=== PATIENT | male | born 1960 | race African-American/Black ===

== ENCOUNTER 2020-02-16 14:02 | Inpatient (IN) | payer OTHER, BC ==
[~2020-02-16] VITALS: Ht 175.3 cm; Wt 97.9 kg
[2020-02-16] VITALS (14 sets, daily range): BP systolic 149–181; BP diastolic 53–79
--- NOTE | ~2020-02-16 | HC ---
[facility] [place] [address] CONSULTATION Name: RASHEL TAPIA Room #: 238-P ADM IN M.R.#: [id number] Admission: 02/16/20 Attend Phys: Sameer Mariee MD Discharge: Date of : 60 Report #: [id number] THIS REPORT FOR: cc: LIZZ Campos family physician/PCP LIZZ Campos family physician/PCP January Prajapati MD ~ CC: [facility] physician/PCP Sameer Mariee REASON FOR THE CONSULTATION: Elevated creatinine. REASON FOR THE PRESENTATION: Shortness of breath. HISTORY OF PRESENT ILLNESS: This is obtained from the medical chart. The patient is currently intubated and not able to provide me with the history. A 59-year-old with a history of diabetes mellitus, hypertension, chronic kidney disease. Most of the patient's care is actually at . He presented yesterday with shortness of breath. He was hypoxic on arrival. He was emergently intubated. Looks like that the patient has been noncompliant with his medication per the . He had an elevated creatinine of 2.8. I have not talked with the yet, but she reported that the patient is known to have chronic kidney disease and is followed by . He is also known to have all diabetic complications related to diabetes mellitus including bilateral below-knee amputations. PAST MEDICAL HISTORY: 1. Diabetes mellitus. 2. Hypertension. 3. Bilateral amputee. MEDICATIONS: 1. Atorvastatin. 2. Aspirin. 3. Insulin. 4. Amlodipine. REVIEW OF SYSTEMS: Unobtainable given the patient's current intubated status. ALLERGIES: None. FAMILY HISTORY: Unobtainable given the patient's current mental status. SOCIAL HISTORY: Unobtainable given the patient's current intubation status. PHYSICAL EXAMINATION: VITAL SIGNS: Blood pressure is 148/56, pulse rate is 63. He is currently [facility] [address] [place] [address] CONSULTATION Name: RASHEL TAPIA Room #: 238-P [facility] IN [facility]#: [id number] Admission: 02/16/20 Attend Phys: Sameer Mariee MD Discharge: Date of : 60 Report #: [id number] intubated. CHEST: Decreased air entry bilaterally with crackles and rhonchi on the right side. CARDIOVASCULAR: No rub. ABDOMEN: Soft. EXTREMITIES: Lower extremities, bilateral amputee. LABORATORY VALUES: Reviewed. White blood cell count is 15.0, hemoglobin is 9.0, platelet is 139. Blood gas from this morning showed a pH of 7.3. Chemistry from today is not received yet; however, yesterday's chemistry revealed a sodium of 138, potassium of 6.4, BUN of 37, creatinine of 2.9. Chest x-ray reviewed, right-sided pulmonary infiltrate. ASSESSMENT, IMPRESSION, PLAN: 1. Acute kidney injury. 2. Chronic kidney disease. 3. Person under investigation for COVID-19 infection. 4. First COVID-19 was negative, pending repeat. 5. Right-sided pneumonitis. 6. Continue antibiotics. 7. The patient had significant hyperkalemia on presentation and this was treated. Labs from today are pending. 8. Continue with the IV fluid. 9. Infectious Disease is currently managing his antibiotics. 10. We will wait for the labs from today to decide about further plans regarding his chronic kidney disease. 11. We will reach out to his regarding his chronic kidney disease history and the prospective of his medical care. By: [phone] January Prajapati MD /nt
[2020-02-16 14:27] LABS: EOSINOPHILS 1.1 % (0.0-3.0); HEMOGLOBIN 10.6 gm/dL (14.0-18.0)
[2020-02-16 14:35] LABS: ABSOLUTE NEUTROPHILS 11.7 thou/uL (1.4-8.2); BASOPHILS 0.4 % (0.0-2.0); HEMATOCRIT 34.4 % (42.0-52.0); LYMPHOCYTES 10.5 % (24.0-44.0); MCHC 30.9 g/dL (28.0-37.0); MONOCYTES 4.2 % (1.0-8.0); POLYS 83.8 % (36.0-66.0); RBC 4.25 mil/uL (4.50-6.00); RDW 15.3 % (10.5-14.5); WBC 13.9 thou/uL (4.0-11.0)
[2020-02-16 14:39] LABS: ANION GAP 9 mmol/L (7-16); BUN 34 mg/dL (7-18); CALCIUM 8.1 mg/dL (8.5-10.1); CHLORIDE 107 mmol/L (98-107); CO2 23 mmol/L (21-32); CREATININE 2.8 mg/dL (0.7-1.3); GLUCOSE 202 mg/dL (74-106); POTASSIUM 5.2 mmol/L (3.5-5.1); SODIUM 139 mmol/L (136-145)
[2020-02-16 14:43] LABS: TROPONIN-I <0.06 ng/mL (<0.06)
[2020-02-16 14:53] LABS: BE(vivo) -10.3 mmol/L (-2 to +3); HCO3 16.6 mmol/L (22.0-26.0); PCO2 40.4 mmHg (35.0-45.0); PO2 103.6 mmHg (80.0-100.0); pH 7.231 (7.360-7.450); sO2 96.8 % (92.0-98.0)
[2020-02-16 15:06] LABS: PLATELET COUNT 176 thou/uL (150-400)
[2020-02-16] MEDS ORDERED: PEPCID20 MG PO (15:52)
[2020-02-16] MEDS ORDERED: LIPITOR40 MG PO (15:54)
[2020-02-16] MEDS ORDERED: LANTUS (15:54)
[2020-02-16] MEDS ORDERED: ASA81BEC PO (15:54)
[2020-02-16] MEDS ORDERED: NORVASC 2.5 MG2.5 M1 PO (15:54)
[2020-02-16] MEDS ORDERED: NOVOLOG100 UNIT/M (15:55)
--- NOTE | 2020-02-16 17:46 | NUR ---
REPORT GIVEN TO ICU NURSE
[2020-02-16 21:16] LABS: HEMATOCRIT 28.3 % (42.0-52.0); MCH 25.5 pg (26.0-34.0); MCHC 31.8 g/dL (28.0-37.0); MCV 80.3 fL (80.0-100.0); RBC 3.53 mil/uL (4.50-6.00)
[2020-02-16 21:35] LABS: CALCIUM 7.5 mg/dL (8.5-10.1); CREATININE 2.9 mg/dL (0.7-1.3)
[2020-02-16 21:40] LABS: POTASSIUM 6.4 mmol/L (3.5-5.1)
[2020-02-17] VITALS (28 sets, daily range): BP systolic 128–176; BP diastolic 52–78
--- NOTE | 2020-02-17 03:28 | NUR ---
ASSUMED CARE OF PATIENT AT 1900. ADMISSION HISTORY AND MED REC COMPLETE WITH INFORMATION PROVIDED BY DAUGHTER CONRADO VIA PHONE. FIRST COVID TEST NEGATIVE. RESULTS CALLED TO ASHA ARECHIGA, GERMINATION WORKER, AND CHARGE. DR IBANEZ. DR GARRETT CONSULTED. ORDERS FROM DR IBANEZ TO MOVE PATIENT TO POD 1. DR ALICEA CONSULTED DUE TO CRITICAL LABS, ORDERS RECIEVED, INFORMATION PASSED ON TO RN ASSUMING CARE AFTER MOVE. DAUGHTER UPDATED ABOUT MOVE, WAS ABLE TO SPEAK WITH DR IBANEZ. PATIENT MOVED TO ROOM 238 AT 0038. POC GOALS ESTABLISHED.
[2020-02-17 05:18] LABS: HCO3 21.9 mmol/L (22.0-26.0); PCO2 43.1 mmHg (35.0-45.0); PO2 102.6 mmHg (80.0-100.0); pH 7.323 (7.360-7.450); sO2 97.3 % (92.0-98.0)
--- NOTE | 2020-02-17 08:47 | NUR ---
[facility] PT PROGRESSING TOWARD GOALS. ALERT, APPROPRIATE ON PROPOFOL.DENIES PAIN. MONITOR SR. AFBRILE. BP WNL HYPERKALMIA PROTOCOL GIVEN PER DR OMALLEY. DIRUESING WELL AFTER LASIX. NO STOOLS. BS WNL THIS AM AFTER INSULIN/DEXTROSE COMBO.DECREASING OXYGEN NEEDS VIA VENT --NOW ON 60% AND PEEP 5. AWAITING LABS, AND 2ND COVID TEST. GOOD TECHIQUE
--- NOTE | 2020-02-17 08:58 | EKG ---
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: meryl : 1960 Requested By: Prince Lu Order Number: [id number] MD: Johnny Sena Measurements Intervals [place] Rate: 82 P: 42 MS: 176 QRS: -86 QRSD: 97 T: 81 QT: 405 QTc: 473 Interpretive Statements Sinus rhythm Left anterior fascicular block RSR' in V1 or V2, right VCD Borderline prolonged QT interval No previous ECG available for comparison Electronically Signed On 02-17-2020 8:56:03 CDT by Johnny Sena [email or web address] <ELECTRONICALLY SIGNED> By: Johnny Sena MD, [facility] 02/17/20 0856 1414 1414 Johnny Sena MD, [facility] /EPI
[2020-02-17 09:05] LABS: HEMATOCRIT 26.1 % (42.0-52.0); HEMOGLOBIN 8.7 gm/dL (14.0-18.0); MCH 26.8 pg (26.0-34.0); MCHC 33.5 g/dL (28.0-37.0); RBC 3.26 mil/uL (4.50-6.00); RDW 15.2 % (10.5-14.5); WBC 10.7 thou/uL (4.0-11.0)
[2020-02-17 09:11] LABS: CALCIUM 7.4 mg/dL (8.5-10.1); CREATININE 2.9 mg/dL (0.7-1.3); POTASSIUM 5.9 mmol/L (3.5-5.1)
--- NOTE | 2020-02-17 10:10 | NUR ---
WOUND CONSULT; THE PATIENTS RN NOTED SKIN BREAKDOWN TO THE FINGERS ON THE RIGHT HAND. THE REPORT WAS JHA TO THE 3RD-5TH FINGERS. UNSTABLE BLISTERS WERE NOTED. NO S/S OF INFECTION SEEN. THE WOUNDS WERE ASSESSED BY PICTURES RE; COVID19 ISOLATION. RN STATES THE PICTURES ARE ACCURATE. RECOMMENDATIONS; 1-XEROFORM, WRAP WITH 2" GAUZE, SECURE WITH TAPE, CHANGE M/W/F PRN DISCUSSED WITH RN
--- NOTE | 2020-02-17 10:44 | NUR ---
Nutrition: REC consider initial tube feeds within 24 hrs if remains intubated. If hyperkalemia persists, rec nepro at 40 mL/hr with beneprotein in water flushes if ordered. If K+ normalizes REC Vital HP at 70 mL/hr with current propofol rate.
--- NOTE | 2020-02-17 14:25 | NUR ---
VASCULAR ACCESS NURSE NOTIFIED TO PLACE A CENTRAL LINE FOR A PATIENT NEEDING ACCESS. ORDER AND CONSENT NOTED. THE PROCEDURE WELL BENIFITS AND RISKS WERE DISCUSSED AND HE VERBALIZED UNDERSTANDING. THE RIGHT IJ WAS WIDLEY PATENT. A #6F TRIPLE LUMEN POWER INJECTABLE CENTRAL LINE WAS PLACED AFTER A BEDSIDE TIMEOUT WAS COMPLETED. LINE WAS 25CM WITH 7CM EXTERNAL. A STAT CHEST XRAY CONFIRMED LINE IN SVC AND RELEASED FOR USE
--- NOTE | 2020-02-17 15:19 | NUR ---
INITIAL ASSESSMENT: Received consult. YARITZA reviewed chart and spoke with attending physician. Pt was admitted from home due to shortness of air. Pt is in Enhanced Isolation. Two COVID-19 tests have been negative. Pt is currently intubated. YARITZA spoke with pt's dtr, Oriana, via phone. Introduced role of SW. Pt is normally alert/orientated x 4. Pt lives at home with Oriana. Pt with hx bilateral BKAs. Pt has prosthesis and is able to ambulate without an assistive device. Pt has been to the inpt acute rehab at [facility] following both BKAs. Pt's PCP is at [facility]. No weekend discharge planned. Pt will need therapy evals ordered when able to participate. YARITZA is following to assist as needed with discharge planning.
--- NOTE | 2020-02-17 19:41 | NUR ---
RECEIVED PT'S CARE AROUND 0710; PT. ON BED; RESTING WITH EYES CLOSED; ON PROPOFOL; SR ON THE MONITOR; DURING AM ASSESSMENT DEEP SEDATION; PROPOFOL TITRATE IT DOWN TO 19.98; RE-ASSESSMENT PT. EASILY AROUSOBLE; AOX4; NO C/O PAIN; ASKED IF COVID RESULTS WERE BACK; UPDATE; AM MEDICATIONS GIVEN; HOLD LANTUS; BS 126; DURING ROUNDING DR. URBANO REQUESTED TO GIVE LANTUS; MEDICATION GIVEN; POTASSIUM ELEVATED; DR. ORTEGA NOTIFIED; ORDERS RECEIVED; PT. RECEIVED BREATHING TREATMENT; RT NOT ABLE TO SCANNED MEDICATION DUE TO [employer] DID NOT ALLOW IT; WOUND CARE PERFORMED PER ORDERS; TURN FROM SIDE TO SIDE; PT. ABLE TO ASSIST WITH TURNINGS; SBP ELEVATED; PHYSICIAN NOTIFIED; ORDERS ON PLACE; PRN MEDICATION GIVEN; DURING THE EVENING BS ON THE 50s; PROTOCOL FOLLOWED; D10 GIVEN; PHYSICIAN NOTIFIED; ORDERS RECEIVED; PT. REFUSED TURNING DURING LATE AFTERNOON; THROUGH THE DAY O2 SATs BETWEEN 98-100s; O2 DECREASE TO 40%; SECOND COVID 19 TEST NEGATIVE; PHYSICIANS NOTIFIED; DR. IBANEZ REQUESTED A THRID TEST ON 02/18/2020; CHARGE NURSE AWARED OF IT; ASSESSMENT CHARGED; FOLLOWING POC; PASSED ON REPORT; DURING SHIFT CHANGE RECEIVED CALL FROM DR. ORTEGA; PHYSICIAN [facility] PT'S DAUGHTER PT. IS NOT INTERESTING IN DIALYSIS; NIGHT NURSE NOTIFIED;
[2020-02-18] VITALS (17 sets, daily range): BP systolic 124–158; BP diastolic 40–69
[2020-02-18 01:07] LABS: HIV ANTIBODY Non Reactive (Non Reactive)
--- NOTE | 2020-02-18 06:00 | NUR ---
PT REMAINS INTUBATED AND LIGHTLY SEDATED. FOLLOWS COMMANDS WRITES NOTES. PROPOFOL AT 20 MCG. LUNGS SLIGHTLY COARSE IN UPPER LOBES. 40 % FIO2 BATHED. HAD A MOD GUO BROWN LOOSE STOOL THIS AM. DENIES PAIN NOR DISCOMFORT. RESTED QUIETLY ALL NIGHT. A VERY DELIGHTFUL GENTLEMAN. WILL DO # 3 COVID TEST TODAY. THE FIRST 2 WERE NEGATIVE. SPOKE WITH PTS DAUGHTER WHOM HE LIVES WITH. PTS 83 Y/O MOTHER GOT DX WITH COVID 19 WHILE AT A REHAB IN [facility] 2 WEEKS AGO. SHE IS ALSO ON THE VENT. PT Has not seen his mother in a while. WILL CONT TO MONITOR CLOSELY.
[2020-02-18 06:25] LABS: HEMATOCRIT 24.4 % (42.0-52.0); HEMOGLOBIN 7.8 gm/dL (14.0-18.0); MCH 25.6 pg (26.0-34.0); MCHC 32.1 g/dL (28.0-37.0); MCV 79.8 fL (80.0-100.0); RBC 3.06 mil/uL (4.50-6.00); RDW 15.4 % (10.5-14.5); WBC 8.9 thou/uL (4.0-11.0)
[2020-02-18 06:39] LABS: ALBUMIN 2.1 g/dL (3.4-5.0); CALCIUM 7.4 mg/dL (8.5-10.1); CREATININE 3.1 mg/dL (0.7-1.3); PHOSPHORUS 3.8 mg/dL (2.5-4.9)
[2020-02-18 06:46] LABS: POTASSIUM 4.9 mmol/L (3.5-5.1)
[2020-02-18 13:58] LABS: BE(vivo) -1.8 mmol/L (-2 to +3); HCO3 23.4 mmol/L (22.0-26.0); PCO2 41.4 mmHg (35.0-45.0); sO2 95.8 % (92.0-98.0)
--- NOTE | 2020-02-18 19:26 | NUR ---
ASSUMED CARE @ 0700 02/18/20, PT ASSESSMENTS AND VSS COMPLETE PER ICU PROTOCOL AND DOCUMENTED. DR URBANO HERE TO ROUND, NO NEW ORDERS NOTED. AT INTIAL ASSESSMENT, 0800 , RN NOTES THAT THE OG TUBE IS @ 35CM, IT WAS REPORTED @ 65CM. TUBE FEEDS STOPPED, OG ADVANCED TO 65CM AND DR URBANO INFORMED, KUB ORDERED. CPAP AT 1250, ABG 1353, RESULTS CALLED TO DR IBANEZ, PT EXTUBATED @ 1705, NOW ON 6L OF , SATS 97-100, NO COMPLICATIONS NOTED. WILL CONT TO MONITOR.
[2020-02-19] VITALS (17 sets, daily range): BP systolic 115–165; BP diastolic 46–76
[2020-02-19 06:04] LABS: HEMATOCRIT 25.2 % (42.0-52.0); HEMOGLOBIN 8.1 gm/dL (14.0-18.0); MCH 25.9 pg (26.0-34.0); MCHC 32.1 g/dL (28.0-37.0); MCV 80.9 fL (80.0-100.0); RBC 3.11 mil/uL (4.50-6.00); RDW 15.2 % (10.5-14.5); WBC 10.4 thou/uL (4.0-11.0)
[2020-02-19 06:19] LABS: ALBUMIN 2.1 g/dL (3.4-5.0); CALCIUM 7.9 mg/dL (8.5-10.1); PHOSPHORUS 3.4 mg/dL (2.5-4.9); POTASSIUM 4.4 mmol/L (3.5-5.1)
--- NOTE | 2020-02-19 07:56 | NUR ---
ASSESSMENTS CHARTED, MEDS GIVEN CHARTED. PATIENT ALERT AND ORIENTED DURING SIFT. ON 6 LITERS NASAL CANULA MAINTAINING OXYGEN LEVEL ABOVE 90%. JUAREZ IN PLACE WITH GREAT OUTPUT. STARTED NPO SINCE EXTIBATED. ATE ICE CHIPS FINE, PROGRESSED TO WATER FINE, ATE YOGURT FINE. ACCUCHECK Q6 COVERED CHARTED. PATIENT ABLE TO REPOSITION HIMSELF IN BED. DENIED PAIN. FALL PRECAUTIONS IN PLACE DURING SHIFT. SPOKE WITH DAUGHTER THIS MORNING, WANTS TO KNOW HOW SOON HE WELL BE DISCHARGED.
[2020-02-20] VITALS (11 sets, daily range): BP systolic 117–164; BP diastolic 39–73
--- NOTE | 2020-02-20 06:00 | NUR ---
PT AWAKE AND ALERT SLEPT MOST OF NIGHT. VSS SINUS RHYTHM. 600 CC UO THIS SHIFT. PROGRESSING TOWARD GOALS. WILL CONT TO MONITOR
--- NOTE | 2020-02-20 06:10 | NUR ---
TX VIA BED WITH RN TO CCU ROOM 207.
[2020-02-20 06:23] LABS: HEMATOCRIT 24.2 % (42.0-52.0); HEMOGLOBIN 7.7 gm/dL (14.0-18.0); MCHC 31.8 g/dL (28.0-37.0); RBC 2.95 mil/uL (4.50-6.00); RDW 15.2 % (10.5-14.5); WBC 10.2 thou/uL (4.0-11.0)
[2020-02-20 06:50] LABS: ALBUMIN 2.1 g/dL (3.4-5.0); CALCIUM 7.8 mg/dL (8.5-10.1); CREATININE 3.5 mg/dL (0.7-1.3); PHOSPHORUS 3.3 mg/dL (2.5-4.9); POTASSIUM 4.6 mmol/L (3.5-5.1)
--- NOTE | 2020-02-20 17:47 | NUR ---
RECEIVED PT'S CARE AROUND 0700; PER CHARGE NURSE; PT. WAS TRANSFER FROM ICU AT SHIFT CHANGE; NO REPORT RECEIVED; PT. KNOWN TO DATA ANALYTICS ANALYST DUE TO NURSE TOOK CARE LAST THURSDAY; AT SHIFT CHANGE PT. ALERT; DURING AM ASSESSMENT PT. A0X4; C/O PAIN DUE TO JUAREZ CATHETER; PER DR. URBANO DURING ROUNDING OK TO D/C JUAREZ; AM MEDICATIONS GIVEN; PER DR. URBANO OK TO D/C CENTRAL LINE; JUAREZ D/C AT 1050; CENTRAL LINE D/C AT 1700; TIP COMPLETE; REFUSED TO SIT ON CHAIR; ST. FEELING TIRED; DAUGHTER UPDATE ABOUT PT'S CONDITION; ST. UNDERSTANDING; SR ON THE MONITOR; WOUND CARE PERFOMED; MONITORING VOIDING; ASSESSMENT CHARGED; FOLLOWING POC; WILL PASS ON REPORT;
[2020-02-21 00:27] VITALS: BP 133/57
[2020-02-21 04:01] VITALS: BP 134/45
--- NOTE | 2020-02-21 04:29 | NUR ---
ASSESSMENT DOCUMENTED.PT BEEN RESTING IN NO ACUTE DISTRESS.PT STAYED IN BED THROUGH THE NOC.VSS.NSR ON MONITOR.ON O2 AT 2LITERS PNC,NO RESP DISTRESS NOTED.BBKA,PT USES PROSTHESIS TO AMBULATE.DENIES ANY NEEDS AT THIS TIME.WILL CONT TO MONITOR PER POC.
--- NOTE | 2020-02-21 04:52 | NUR ---
PT HAD NOT URINATED ALL THIS SHIFT SO FAR,BLADDER SCAN SHOWS RESIDUAL OF 300ML,PT DENIES URGE TO VOID, STATED"I DONT PEE THROUGH THE NOC,I PEE WHEN I WAKE UP IN THE MORNING AND YOU GUYS KEEP INTERRUPTING MY SCHEDULED"PT DECLINED STRAIGHT KENDRA ,WILL TRY TO ASK HIM TO TRY TO VOID AT THE END OF THE SHIFT.WILL CONT TO MONITOR PER POC.
[2020-02-21 05:13] LABS: ALBUMIN 2.1 g/dL (3.4-5.0); CALCIUM 7.7 mg/dL (8.5-10.1); CREATININE 4.4 mg/dL (0.7-1.3); PHOSPHORUS 3.7 mg/dL (2.5-4.9); POTASSIUM 4.7 mmol/L (3.5-5.1)
[2020-02-21 06:06] LABS: HEMATOCRIT 23.9 % (42.0-52.0); HEMOGLOBIN 7.7 gm/dL (14.0-18.0); MCH 26.1 pg (26.0-34.0); MCHC 32.1 g/dL (28.0-37.0); MCV 81.4 fL (80.0-100.0); RBC 2.93 mil/uL (4.50-6.00); RDW 15.3 % (10.5-14.5); WBC 9.3 thou/uL (4.0-11.0)
[2020-02-21 08:02] VITALS: BP 142/70
--- NOTE | 2020-02-21 11:25 | NUR ---
WOUND CARE F/U; ASSESSED LEFT HAND FINGERS W/ DEMOLITION EXPERTBENSON JACKSON, 4TH AND 5TH FINGERS WOUND STILL OPEN BUT HEALING, PINK VIABLE TISSUE PRESENT, NO S/S INFECTION, COOPERATIVE, CLEANSED W/ NS, XEROFORM GAUZE, KERLIX WEAVED BETWEEN FINGERS RECOMMENDATIONS; CONT XEROFORM AND KERLIX DAILY AND PRN STAFF AWARE
[2020-02-21 11:45] VITALS: BP 141/64
--- NOTE | 2020-02-21 12:44 | 2DMMODE ---
[facility] [address] 2 D/M-MODE ECHOCARDIOGRAM Name: RASHEL TAPIA Room #: 203-P ADM IN M.R.#: [id number] Admission: 02/16/20 Attend Phys: Sameer Mariee MD Discharge: Date of : 60 Report #: [id number] THIS REPORT FOR: cc: FAM - No family physician/PCP FAM - No family physician/PCP Vernon Germain MD ~ APPROVED REPORT Study performed: 02/21/2020 11:27:05 EXAM: Comprehensive 2D, Doppler, and color-flow Echocardiogram Patient Location: Bedside Room #: 203 Status: routine BSA: 2.42 HR: 67 bpm BP: 142/70 mmHg Rhythm: NSR/ARRHYTHMIA Other Information Study Quality: Fair Technically limited study due to morbid obesity. Indications Heart failure. Hx: CHF, DM, HTN, HLP, Bilateral BKA. 2D Dimensions RVDd: 44.03 mm IVSd: 16.26 (7-11mm) LVOT Diam: 24.73 (18-24mm) LVDd: 51.70 mm PWd: 15.96 (7-11mm) Ascending Ao: 33.97 (22-36mm) LVDs: 37.74 (25-40mm) Aortic Root: 39.94 mm Volumes Left Atrial Volume (Systole) Single Plane 4CH: 63.60 mL Single Plane 2CH: 99.87 mL LA ESV Index: 38.00 mL/m2 Aortic Valve AoV Peak Dayton.: 1.44 m/s AO Peak Gr.: 8.29 mmHg LVOT Max P.96 mmHg LVOT Max V: 1.11 m/s [facility] [address] [place] [place] [address] 2 D/M-MODE ECHOCARDIOGRAM Name: RASHEL TAPIA Room #: 203-P [facility]#: [id number] Admission: 02/16/20 Attend Phys: Sameer Mariee MD Discharge: Date of : 60 Report #: [id number] IVANA Vmax: 3.72 cm2 Mitral Valve E/A Ratio: 1.8 MV Decel. Time: 166.64 ms MV E Max Dayton.: 1.19 m/s MV A Dayton.: 0.68 m/s MV PHT: 48.33 ms IVRT: 83.04 ms Pulmonary Valve PV Peak Dayton.: 0.82 m/s PV Peak Gr.: 2.68 mmHg Tricuspid Valve RAP Estimate: 10.00 mmHg Left Ventricle The left ventricle is normal size. There is normal LV segmental wall motion. Moderate concentric left ventricular hypertrophy. Left ventricular systolic function is normal. LVEF is 55-60%. The left ventricular diastolic function is normal. Right Ventricle Right ventricle is at the upper limits of normal. The right ventricular systolic function is normal. Atria Left atrium is mildly dilated. Right atrium is at the upper limits of normal. Aortic Valve Aortic valve leaflets are mildly thickened and calcfied. No aortic regurgitation is present. There is no aortic valvular stenosis. Mitral Valve The mitral valve is normal in structure. There is no mitral valve regurgitation noted. No evidence of mitral valve stenosis. Tricuspid Valve The tricuspid valve is normal in structure. There is no tricuspid valve regurgitation noted. Unable to assess PA pressure. Pulmonic Valve The pulmonary valve is normal in structure. Trace pulmonic regurgitation. [facility] [address] [place] [address] 2 D/M-MODE ECHOCARDIOGRAM Name: THOMAS TAPIACAROLINA Room #: 203-P [facility] IN M.R.#: [id number] Admission: 02/16/20 Attend Phys: Sameer Mariee MD Discharge: Date of : 60 Report #: [id number] Great Vessels The aortic root is normal in size. The ascending aorta is normal in size. IVC is dilated and collapses <50% with inspiration. Pericardium Trace to small posterior pericardial effusion. Left and right pleural effusions noted. <Conclusion> The left ventricle is normal size. LVEF is 55-60%. Right ventricle is at the upper limits of normal. Left atrium is mildly dilated. Right atrium is at the upper limits of normal. Aortic valve leaflets are mildly thickened and calcfied. The mitral valve is normal in structure. The tricuspid valve is normal in structure. The pulmonary valve is normal in structure. Trace pulmonic regurgitation. Trace to small posterior pericardial effusion not hemodynamically significant. Left and right pleural effusions noted. <ELECTRONICALLY SIGNED> By: Vernon Germain MD 02/21/20 [phone] Vernon Germain MD /INF
--- NOTE | 2020-02-21 16:34 | NUR ---
ASSUMED CARE PT SHIFT CHANGE. ASSESSMENTS CHARTED.MEDS GIVENPER NOV. PT ALERT AND ORIENTED.VSS. DENIES PAIN. O2 SATS WNL ON 1-2L O2. PT WEANED TO 1L, AFTER WORKING WITH PHYSICAL THERAPY PT REQUIRED 2L, REMAINS ON 2L. PT UP WITH PROSTHETICS WORKING WITH PHYS THERAPY TOLERATING WELL. PT STATED LEFT LOCOMOTIVE CRANE OPERATOR SOCK MISSING, ICU CONTACTED, NO LOCOMOTIVE CRANE OPERATOR SOCK WAS IN LEFT IN ROOM. FAMILY UPDATED ON POC. CREAT CONTINUES TO RISE--NEPHROLOGY AWARE. ECHO COMPLETE THIS SHIFT--REFER TO RESULTS. APPETITE ADEQUTE. WOUNDS LEFT FINGERS ASSESSED AND CLEANED/REDRESSED. PT CURRENTLY SITTINGUP IN CHAIR. DENYING CONCERNS. WILL CONTINUE TO MONITOR AND FOLLOW POC. WILL PASS ON REPORT TO ISAK KNOWLES.
[2020-02-21 16:54] VITALS: BP 148/57
[2020-02-21 22:00] VITALS: BP 146/59
[2020-02-21 23:07] LABS: ADENOVIRUS Negative (Negative); INFLUENZA A Negative (Negative); INFLUENZA B Negative (Negative); METAPNEUMOVIRUS Negative (Negative); PARAINFLUENZA 1 Negative (Negative); PARAINFLUENZA 2 Negative (Negative); PARAINFLUENZA 3 Negative (Negative); RHINOVIRUS Negative (Negative); RSV A Negative (Negative); RSV B Negative (Negative)
--- NOTE | 2020-02-22 04:55 | NUR ---
ASSUMED PT CARE AT 1900. PT IS ALERT AND ORIENTED. PT IS SITTING IN CHAIR. NO SIGN OF DISTRESS NOTED IN PT. DENIES ANY PAIN. VITAL SIGNS STABLE. FALL PRECAUTION IN PLACE. CALL LIGHT WITHIN REACH. ASSESSMENT COMPLETED AND DOCUMENTED. SCHEDULED MEDS ADMINISTERED TO PT. PT VERBALIZES ABOUT BEEN CONSTIPATED. MEDICATON ADMINISTERED TO PT. CONTINUE TO MONITOR. NO EVENTS OVERNIGHTS. NO FURTHER NEEDS AT THIS TIME.
[2020-02-22 05:27] LABS: ALBUMIN 2.3 g/dL (3.4-5.0); CREATININE 4.8 mg/dL (0.7-1.3); PHOSPHORUS 3.8 mg/dL (2.5-4.9); POTASSIUM 4.9 mmol/L (3.5-5.1)
[2020-02-22 05:34] LABS: CALCIUM 8.4 mg/dL (8.5-10.1)
[2020-02-22 07:30] VITALS: BP 174/69
[2020-02-22 12:00] VITALS: BP 168/56
--- NOTE | 2020-02-22 12:42 | NUR ---
PT. UP AT SIDE OF HIS BED EATING HIS LUNCH. DENIES ANY CHEST PAIN NOR ANY SOB. DISCUSSED NEW DIAGNOSIS OF HEART FAILURE WITH HIS DAUGHTER ON THE PHONE. WILL NOT BE DISCHARGED TODAY. NSR ON THE MONITOR CURRENTLY. PT. DENIES ANY GARY NOW HE HAD A SMALL BM AND 'FEELS MUCH BETTER", NOW. WILL CONTINUE TO MONITOR.
--- NOTE | 2020-02-22 15:50 | NUR ---
PT. STILL UP IN CHAIR. MANY QUESTIONS REGARDING NEW DIAGNOSIS OF HEART FAILRURE THAT THE MD DISCUSSED WITH HIM THIS MORNING, ALL ANSWERD MUCH POSSIBLE, WILL PROVIDE A HANDOUT WELL. DENIES ANY PAIN, NOR ANY SOB. URINE OBTAINED AND WILL SEND FOR LAB WORK THAT IS ORDERED.
[2020-02-22 16:22] LABS: URINE BILIRUBIN NEGATIVE (Negative); URINE BLOOD 3+ (Negative); URINE CLARITY CLEAR; URINE COLOR YELLOW; URINE GLUCOSE-RANDOM* NEGATIVE (Negative); URINE KETONES NEGATIVE (Negative); URINE LEUKOCYTES NEGATIVE (Negative); URINE NITRITE NEGATIVE (Negative); URINE PROTEIN (DIPSTICK) 2+ (Negative); URINE UROBILINOGEN 0.2 E.U./dl (0.2-1.0)
[2020-02-22 16:30] VITALS: BP 164/64
[2020-02-22 16:30] LABS: SQUAMOUS 0-3 Few /LPF (0-3)
[2020-02-22 16:31] LABS: BACTERIA 1-9 Few /HPF (None Seen); CASTS None Seen /LPF (None Seen); CRYSTALS None Seen /LPF (None Seen); URINE RBC 0-2 Rare /HPF (0-2); URINE WBC 0-5 Rare /HPF (0-5)
[2020-02-22 16:32] LABS: YEAST Present (None Seen)
[2020-02-22 19:04] VITALS: BP 145/58
[2020-02-23 03:31] VITALS: BP 130/51
[2020-02-23 03:43] VITALS: BP 156/71
--- NOTE | 2020-02-23 05:09 | NUR ---
ASSUMED PT CARE AT 1900. PT IS SITTING IN CHAIR, SLEEPING. NO SIGN OF DISTRESS NOTED. PT IS AROUSABLE. DENIES ANY PAIN. FALL PRECAUTION IN PLACE. ASSESSMENT COMPLETED AND DOCUMENTED. SCHEDULED MEDS ADMINISTERED TO PT. TOLERATED PO INTAKE. PT IS UPSET ABOUT NEW DIAGNOSIS. HE STATES THAT HE NEEDED MORE INFORMATION FROM PHYSICIAN. RN PROVIDES EDUCATION. DENIES ANY FURTHER NEEDS AT THIS TIME.
[2020-02-23 07:40] VITALS: BP 159/72
--- NOTE | 2020-02-23 10:07 | NUR ---
WOUND CARE F/U; F/U RE; LEFT HAND FIGER WOUNDS. TODAY THE WOUNDS ARE HEALED NO S/S OF INFECTION. NO NEED TO FOLLOW THIS PATIENT. RECOMMENDATION; NO NEED TO FOLLOW DISCUSSED WITH RN
[2020-02-23 10:50] LABS: HEMATOCRIT 23.6 % (42.0-52.0); HEMOGLOBIN 7.8 gm/dL (14.0-18.0); MCH 26.5 pg (26.0-34.0); MCHC 33.1 g/dL (28.0-37.0); MCV 80.1 fL (80.0-100.0); RBC 2.95 mil/uL (4.50-6.00); WBC 7.9 thou/uL (4.0-11.0)
[2020-02-23 10:53] LABS: CALCIUM 8.2 mg/dL (8.5-10.1); CREATININE 4.6 mg/dL (0.7-1.3); MAGNESIUM 2.2 mg/dL (1.8-2.4)
[2020-02-23 10:56] LABS: % SATURATION 11 % (20-39); IRON 23 ug/dL (65-175); TIBC 213 ug/dL (250-450)
[2020-02-23 10:58] LABS: ALBUMIN 2.4 g/dL (3.4-5.0); CALCIUM 7.7 mg/dL (8.5-10.1); CREATININE 4.5 mg/dL (0.7-1.3); POTASSIUM 5.1 mmol/L (3.5-5.1)
[2020-02-23 11:11] LABS: CALCIUM 8.2 mg/dL (8.5-10.1); CREATININE 4.4 mg/dL (0.7-1.3); PHOSPHORUS 4.1 mg/dL (2.5-4.9)
--- NOTE | 2020-02-23 11:20 | NUR ---
PT. ALERT ON AROUSAL AND DOZING ON AND OFF THIS MORNING. FREQUENTLY TAKES HIS OXYGEN OFF AND NOT WEARING IT. HE DOES DESATURATE TO THE 90'S WITHOUT IT AND REEDUCATED HIM ON THE NEED TO WEAR SUCH FOR HIS OVERALL CARE AND WELL BEING. PT. NSR DENIES ANY CHEST PAIN, NO NAUSEA, DENIES SOB WELL. IV FLUSHED, NO SIGN'S OF INFILTRATION OBSERVED.
[2020-02-23 11:30] VITALS: BP 168/71
[2020-02-23 17:00] VITALS: BP 152/73
[2020-02-23 19:36] VITALS: BP 158/59
[2020-02-24 03:03] VITALS: BP 141/67
[2020-02-24 04:06] LABS: HEMATOCRIT 23.3 % (42.0-52.0); HEMOGLOBIN 7.4 gm/dL (14.0-18.0); MCH 25.7 pg (26.0-34.0); MCHC 31.8 g/dL (28.0-37.0); RBC 2.88 mil/uL (4.50-6.00); RDW 15.1 % (10.5-14.5); WBC 7.1 thou/uL (4.0-11.0)
[2020-02-24 04:19] LABS: ALBUMIN 2.2 g/dL (3.4-5.0); CREATININE 4.4 mg/dL (0.7-1.3); PHOSPHORUS 3.9 mg/dL (2.5-4.9)
--- NOTE | 2020-02-24 06:08 | NUR ---
patients cares were assume at shift change. patient was assessed and meds were passed. patient remained on bed rest. patient is able to move from chair to the bed however he doees need recover time after this activity. patient also remains on O2 nasel canula AND IS TITRATED TO KEEP SATURATION ABOVE 92. HOURLY ROUNDS WERE MADE, THE BED IS IN LOW AND LOCKED POSITION
[2020-02-24 07:36] VITALS: BP 165/62
--- NOTE | 2020-02-24 11:34 | NUR ---
ASSUMED CARE AT CHANGE OF SHIFT. ALERT X4 FROM HOME. DIEGO PAIN, DENIES SOB. CONTINUES ON 2L NASAL CANNULA. WAITING RT O2 WALKING TRIAL FOR POSSIBLE NEED FOR OXYGEN AT HOME. ASSIST X1/STAND BY WITH WALKER AND PROTHESIS. CALLS FOR ASSISTANCE. PERSONAL ITEMS AND CALL LIGHT IN REACH.
[2020-02-24 11:37] VITALS: BP 174/67
[2020-02-24] MEDS ORDERED: DOXYCYCLINE HYC50 MG PO (13:48)
[2020-02-24] MEDS ORDERED: MIRALAX17 GM PO (13:49)
[2020-02-24] MEDS ORDERED: SENNA-TIME S T1 EACH PO (13:49)
--- NOTE | 2020-02-24 14:21 | NUR ---
Pt dcing home today. Weaned off o2 and sats above 88% at rest and ex. Therapy recommended home saftey evals;however the pt does not feel he needs HH. Dtr aware and deferred HH decision to the pt. She will be picking him up as soon as his dc paperwork is ready. Care team updated. No cm interventions indicated. Pt lives with his dtr and she is a RN. Dtr instructed to f/u with pt's pcp.
[2020-02-24 14:25] VITALS: BP 174/67
== END 2020-02-24 15:11 | disposition home health service (06) | DRG 871 ==
LOC: ER 14:02 → ICU 16:01 → 2N 16:01 → EROBS 16:01 → ICU 18:05 → 2N 02-20 06:21
PROVIDERS: Emergency Medicine; Hospitalist; Internal Medicine; Internal Medicine Pulmonary Disease; Specialist; ADMIT Hospitalist
PROC: 0BH17EZ Insertion of Endotracheal Airway into Trachea, Via Natural or Artificial Opening (ICD-10-PCS; principal; 2020-02-16)
PROC: 0DH67UZ Insertion of Feeding Device into Stomach, Via Natural or Artificial Opening (ICD-10-PCS; principal; 2020-02-16)
PROC: 5A1945Z Respiratory Ventilation, 24-96 Consecutive Hours (ICD-10-PCS; principal; 2020-02-16)
PROC: 02HV33Z Insertion of Infusion Device into Superior Vena Cava, Percutaneous Approach (ICD-10-PCS; 2020-02-17)
DX: A41.9 Sepsis, unspecified organism (principal); J18.9 Pneumonia, unspecified organism; J96.01 Acute respiratory failure with hypoxia; N17.9 Acute kidney failure, unspecified; R65.20 Severe sepsis without septic shock; N18.9 Chronic kidney disease, unspecified; Z20.828 Contact with and (suspected) exposure to other viral communicable diseases; I50.9 Heart failure, unspecified; E78.5 Hyperlipidemia, unspecified; E11.51 Type 2 diabetes mellitus with diabetic peripheral angiopathy without gangrene; E87.5 Hyperkalemia; E11.22 Type 2 diabetes mellitus with diabetic chronic kidney disease; D64.9 Anemia, unspecified; Z89.512 Acquired absence of left leg below knee; Z89.511 Acquired absence of right leg below knee; Z91.14 Patient's other noncompliance with medication regimen
CPT/HCPCS: 10078; 10081; 10196; 10203